=== PATIENT | female | born 1985 | race Caucasian/White ===

== ENCOUNTER 2023-01-29 10:15 | Emergency (ER) | payer OTHER, SELFPAY ==
[2023-01-29 10:22] VITALS: BP 109/83; PULSE 77; RESP 20; TEMP 36.8; O2SAT 98; BMI 34.0
--- NOTE | 2023-01-29 10:38 | US_ITS ---
The [address] [address] Patient Name: NILDA IVEY MRN: [id number] date: 1985 Sex: F Assigned Patient Location: ER Current Patient Location: ER Accession/Order Number: [id number] Exam Date: 01/29/2023 12:00 Report Date: 01/29/2023 13:06 At the request of: SANDY RODRÍGUEZ Procedure: US right upper quadrant EXAM: US right upper quadrant HISTORY: acute [facility] on wednesday COMPARISON: None. TECHNIQUE: Grayscale and color ultrasound FINDINGS: The liver is normal in size, contour and echotexture measuring 15.1 cm in length. Hepatopedal flow in the main portal vein with a velocity of 32 cm/s The visualized pancreas is normal The gallbladder is normal in size. Negative sonographic Flores sign. The gallbladder wall is thickened measuring 4.3 mm. Echogenic focus in the gallbladder neck measuring 2.3 x 1.6 x 2.0 cm, cholelithiasis with underlying sludge. Common bile but measures 3.7 mm, normal The right kidney is normal measuring 10.8 x 4.9 x 4.9 cm IMPRESSION: Thickened gallbladder wall consistent with cholecystitis. Underlying cholelithiasis and gallbladder sludge Electronically authenticated by: SANTIAGO SHEPARD Date: 01/29/2023 13:06
[2023-01-29 10:58] LABS: Basophils Absolute Auto 0.1 10^3/uL (0.0-0.1); Basophils Percent Auto 0.4 % (0.2-2.0); Eosinophils Absolute Auto 0.3 10^3/uL (0.0-0.7); Eosinophils Percent Auto 2.5 % (0.9-7.0); Hematocrit 41.9 % (36.0-48.0); Hemoglobin 13.7 g/dL (12.0-16.0); Immature Granulocytes Abs Auto 0.09 10^3/uL (0.00-0.03); Immature Granulocytes Pct Auto 0.8 % (0.0-0.5); Lymphocytes Absolute Auto 2.2 10^3/uL (1.2-3.8); Lymphocytes Percent Auto 19.9 % (20.5-60.0); Mean Corpuscular HGB Conc 32.7 g/dL (29.9-35.2); Mean Corpuscular Hemoglobin 30.8 pg (26.7-34.0); Mean Corpuscular Volume 94.2 fL (81.0-99.0); Mean Platelet Volume 10.9 fL (9.5-13.5); Monocytes Absolute Auto 0.7 10^3/uL (0.3-0.8); Monocytes Percent Auto 6.1 % (1.7-12.0); Neutrophils Absolute Auto 7.8 10^3/uL (1.4-6.5); Neutrophils Percent Auto 70.3 % (43.0-75.0); Platelet Count 369 10^3/uL (150-450); Red Blood Count 4.45 10^6/uL (4.20-5.40); Red Cell Distribution Width 11.7 % (11.0-15.0); White Blood Count 11.1 10^3/uL (4.0-11.0)
[2023-01-29] MEDS: 0.9 % SODIUM CHLORIDE 1,000 ML 999 ML IV (11:08)
[2023-01-29] MEDS: ONDANSETRON PF 4 MG/2 ML VIAL IV (11:08)
[2023-01-29 11:18] LABS: Lactate/Lactic Acid 1.4 mmol/L (0.4-2.0)
[2023-01-29 11:25] LABS: Alanine Aminotransferase 26 U/L (14-59); Albumin Globulin Ratio 0.7; Albumin Level 3.6 g/dL (3.4-5.0); Alkaline Phosphatase 105 U/L (46-116); Anion Gap 18.2; Aspartate Amino Transferase 19 U/L (15-37); BUN Creatinine Ratio 20.5; Bilirubin Total 0.5 mg/dL (0.2-1.0); Calcium 9.5 mg/dL (8.5-10.1); Carbon Dioxide 23.7 mmol/L (21.0-32.0); Chloride 98 mmol/L (98-107); Estimated GFR (African America >60 (>=60); Estimated GFR (Non-African Ame >60 (>=60); Globulin 5.4 g/dL; Glucose 74 mg/dL (74-106); Potassium 3.9 mmol/L (3.5-5.1); Sodium 136 mmol/L (136-145)
[2023-01-29 11:47] LABS: HCG Qualitative Urine* NEGATIVE (NEGATIVE)
--- NOTE | 2023-01-29 13:26 | ED_ITS ---
HPI - General Adult General Chief complaint: Abdominal Pain Stated complaint: ADOMINAL PAIN Time Seen by Provider: 01/29/23 10:30 Source: family Mode of arrival: walk-in Limitations: no limitations History of Present Illness HPI narrative: Patient is a 37-year-old female who is presenting with right upper quadrant pain, nausea and intermittent vomiting. Patient was at [facility] on Wednesday. Patient had [facility] on Wednesday, and had a complete evaluation and workup. On January 25, she is a [facility], and she presented stating that she's been having ongoing abdominal pain for one week, she had a ultrasound scheduled already on Wednesday by her PCP. Patient also been having diarrhea. Patient had CT A/P that showed dilated gallbladder with no thickening, some pericolic sick faster attending, no gallstones seen, nothing in the cystic or bile duct. Concerns for acute cholecystitis. Patient had mild prominence of the central biliary tree without intrahepatic buried his dilation, no pancreatic duct or peripancreatic duct dilatation or fluid. Patient had mild thickening and inflammation on the 1st and 2nd portion of duodenum, no acute findings. Patient's father is at bedside. She has no fever, chills, no chest pain or shortness of breath. No bowel or bladder changes today. Patient states her abdominal pain is getting better. Patient made a phone call to a surgeon in [place], she cannot be seen until March. Patient's pain is not improving, so she came to Emergency Room. Patient had the understanding that she had a taking Zofran with food or drink, but she is Already been feeling nauseous and having vomiting, so she did not take the Zofran because she cannot keep food down. I explained to the patient with a probably said was taking the amoxicillin with food or drink if possible not to Zofran because Zofran helps the nausea and vomiting. Patient agrees is probably what they said and she misinterpreted. Patient was sent home with pain medication, nausea medication, and antibiotics. Related Data Home Medications Medication Instructions Recorded Confirmed amoxicillin 875 mg-potassium 1 tab PO Q12H 01/29/23 01/29/23 clavulanate 125 mg tablet hydrocodone 5 mg-acetaminophen 325 1 tab PO Q6H 01/29/23 01/29/23 mg tablet methimazole 5 mg tablet 2.5 mg PO DAILY 01/29/23 01/29/23 ondansetron 4 mg disintegrating 4 mg PO TID 01/29/23 01/29/23 tablet valacyclovir 500 mg tablet 500 mg PO DAILY 01/29/23 01/29/23 Allergies Allergy/AdvReac Type Severity Reaction Status Date / Time No Known Drug Allergies Allergy Verified 01/29/23 10:22 Review of Systems ROS Narrative All systems are negative except as noted/marked. All systems reviewed and otherwise negative. Exam Narrative Exam Narrative: Nurses note and vital signs reviewed and patient is not hypoxic. General: The patient appears well and in no apparent distress. Patient is resting comfortably on cart. Patient is not toxic, lethargic, or listless. Patient's looks well, very comfortable. Skin: Warm, dry, no pallor noted. There is no rash noted. No petechiae, purpura. Head: Normocephalic, atraumatic Eye: Normal conjunctiva, no drainage, EOMI. PERRL Ears, Nose, Mouth, and Throat: oral mucosa is moist. Nares patent. Mouth without vesicles. Cardiovascular: Regular Rate and Rhythm, no murmur, gallop, rub Respiratory: Patient is in no distress, no accessory muscle use, lungs are clear to auscultation, no wheezing, rales or rhonchi Back: non-tender, no CVA tenderness bilaterally to percussion. No CT LS midline pain GI: soft, Obese, mild tenderness to palpation to right upper quadrant, midepigastric area, patient has minimal diffuse tenderness otherwise to ab domen., no masses appreciated. No rebound, guarding, or rigidity noted. No flank pain bilateral, No distention. No peritoneal signs. Musculoskeletal: Patient has full range of motion of all of the extremities, no motor, sensory, or focal neurological deficits Neurological: A&O x3, normal speech Psychiatric: Cooperative Constitutional Vital Signs - 24 hr 01/29/23 10:22 Temperature 98.3 F Pulse Rate [Monitor] 77 Respiratory Rate 20 Blood Pressure [Left Arm] 109/83 H Pulse Oximetry 98 Oxygen Delivery Method Room Air Course Vital Signs Vital signs: Vital Signs Temperature 98.3 F 01/29/23 10:22 Pulse Rate 77 01/29/23 10:22 Respiratory Rate 20 01/29/23 10:22 Blood Pressure 109/83 H 01/29/23 10:22 Pulse Oximetry 98 01/29/23 10:22 Oxygen Delivery Method Room Air 01/29/23 10:22 Temperature 98.3 F 01/29/23 10:22 Pulse Rate 77 01/29/23 10:22 Respiratory Rate 20 01/29/23 10:22 Blood Pressure 109/83 H 01/29/23 10:22 Pulse Oximetry 98 01/29/23 10:22 Oxygen Delivery Method Room Air 01/29/23 10:22 Medical Decision Making MDM Narrative Medical decision making narrative: Patient's ultrasound today showed no significant finding, patient does have slightly thickened gallbladder santos, a gallstone, but no extraction, no signs acute cholecystitis. Patient's lab work is normal with lipase and LFTs. CBC does not show any acute findings as well. Patient has been given IV fluids and medication in the Emergency Room. Patient was sent home with no new prescriptions, she has prescriptions for nausea, pain, dull pain, and antibiotics. Education was done at bedside again with patient and father. Patient was given Dr. Valencia name and number to follow up with. Patient has no other questions at discharge. Lab Data Lab results reviewed: Yes I reviewed the patient's lab results Labs: Lab Results 01/29/23 Range/Units 10:25 WBC 11.1 H (4.0-11.0) 10^3/uL RBC 4.45 (4.20-5.40) 10^6/uL Hgb 13.7 (12.0-16.0) g/dL Hct 41.9 (36.0-48.0) % MCV 94.2 (81.0-99.0) fL MCH 30.8 (26.7-34.0) pg MCHC 32.7 (29.9-35.2) g/dL RDW 11.7 (11.0-15.0) % Plt Count 369 (150-450) 10^3/uL MPV 10.9 (9.5-13.5) fL Neut % (Auto) 70.3 (43.0-75.0) % Lymph % (Auto) 19.9 L (20.5-60.0) % [place] % (Auto) 6.1 (1.7-12.0) % Eos % (Auto) 2.5 (0.9-7.0) % Baso % (Auto) 0.4 (0.2-2.0) % Neut # (Auto) 7.8 H (1.4-6.5) 10^3/uL Lymph # (Auto) 2.2 (1.2-3.8) 10^3/uL [place] # (Auto) 0.7 (0.3-0.8) 10^3/uL Eos # (Auto) 0.3 (0.0-0.7) 10^3/uL Baso # (Auto) 0.1 (0.0-0.1) 10^3/uL Abs Immat Gran (auto) 0.09 H (0.00-0.03) 10^3/uL Imm/Tot Granulo (auto) 0.8 H (0.0-0.5) % Sodium 136 (136-145) mmol/L Potassium 3.9 (3.5-5.1) mmol/L Chloride 98 (98-107) mmol/L Carbon Dioxide 23.7 (21.0-32.0) mmol/L Anion Gap 18.2 BUN 18.0 (7.0-18.0) mg/dL Creatinine 0.88 (0.55-1.02) mg/dL Est GFR ( Amer) >60 (>=60) Est GFR (Non-Af Amer) >60 (>=60) BUN/Creatinine Ratio 20.5 Glucose 74 (74-106) mg/dL Lactate 1.4 (0.4-2.0) mmol/L Calcium 9.5 (8.5-10.1) mg/dL Total Bilirubin 0.5 (0.2-1.0) mg/dL AST 19 (15-37) U/L ALT 26 (14-59) U/L Alkaline Phosphatase 105 (46-116) U/L Total Protein 9.0 H (6.4-8.2) g/dL Albumin 3.6 (3.4-5.0) g/dL Globulin 5.4 g/dL Albumin/Globulin Ratio 0.7 Lipase 51.0 L (73.0-393.0) U/L Urine HCG, Qual Negative (NEGATIVE) Discharge Plan Discharge Chief Complaint: Abdominal Pain Clinical Impression: Abdominal pain, Cholelithiasis, Biliary colic Patient Disposition: Home, Self-Care Time of Disposition Decision: 13:25 Condition: Fair Prescriptions / Home Meds: No Action amoxicillin-pot clavulanate 875-125 mg tablet 1 tab PO Q12H hydrocodone-acetaminophen 5-325 mg tablet 1 tab PO Q6H ondansetron 4 mg tablet,disintegrating 4 mg PO TID valacyclovir 500 mg tablet 500 mg PO DAILY methimazole 5 mg tablet 2.5 mg PO DAILY Instructions: Biliary Colic (ED), Gallstones (ED), Acute Nausea and Vomiting (DC), Abdominal Pain (ED), Laparoscopic Cholecystectomy (DC) Additional Instructions: Take amoxicillin with food or drink as discussed at bedside. Using Gatorade or Powerade is perfect. Use Gatorade, Powerade, protein shakes or Ensure drinks to help with nutrition. Use nausea medication as needed to help with nausea and vomiting. Continue all medication as prescribed. Dr. Fair is the surgeon on-call today, another name and number to follow-up with. If you're having intractable abdominal pain, nausea, vomiting, or any other acute complaints return to the Emergency Room. Stand Alone Forms: Portal Instructions Referrals: ORALIA DYKES [Primary Care Provider] - 1 week Umer Valencia MD [Physician] - 1 week
== END 2023-01-29 13:33 | disposition home or self-care (01) ==
PROVIDERS: Emergency Provider Emergency Medicine; PCP Internal Medicine
DX: K80.70 Calculus of gallbladder and bile duct without cholecystitis without obstruction (principal); R10.9 Unspecified abdominal pain; Z79.899 Other long term (current) drug therapy
CPT/HCPCS: 36415; 76705; 80053; 83605; 83690; 84703; 85025; 96361; 96374; 99284